=== PATIENT | male | born 1960 ===

== ENCOUNTER 2019-04-13 12:25 | Day surgery (SDC) | payer OTHER ==
[~2019-04-13 12:25] MED LIST: AMARYL PO; AMBIEN10 MG PO; ATORVASTATIN CA20 MG PO; CIPRO500 MG PO; GLUCOPHAGE XR500 MG; LANTUS; OMEPRAZOLE20 MG PO; RANITIDINE HCL300 MG PO; VASOTEC10 MG; VASOTEC10 MG PO
== END 2019-04-13 21:25 | disposition home or self-care (01) ==
LOC: CIR.AMB 12:25
DX: C67.6 Malignant neoplasm of ureteric orifice (principal)

== ENCOUNTER 2019-05-04 03:21 | Emergency (ER) | payer OTHER ==
[~2019-05-04] VITALS: Ht 175.3 cm; Wt 90.7 kg
[2019-05-04] MEDS ORDERED: CIPRO500 MG PO (08:12)
[2019-05-04] MEDS ORDERED: KETO10TA2 PO (08:12)
== END 2019-05-04 09:24 | disposition home or self-care (01) ==
LOC: ER 03:21
DX: N39.0 Urinary tract infection, site not specified (principal); R10.31 Right lower quadrant pain

== ENCOUNTER 2020-07-04 06:19 | Emergency (ER) | payer OTHER ==
[~2020-07-04] VITALS: Ht 175.3 cm; Wt 97.5 kg
[~2020-07-04 06:19] MED LIST changes: +KETO10TA2 PO
[2020-07-04] MEDS ORDERED: KETO10TA2 PO (08:54)
== END 2020-07-04 14:42 | disposition home or self-care (01) ==
LOC: ER 06:19
DX: S40.011A Contusion of right shoulder, initial encounter (principal); S30.0XXA Contusion of lower back and pelvis, initial encounter; S50.01XA Contusion of right elbow, initial encounter; W18.39XA Other fall on same level, initial encounter; Y93.89 Activity, other specified; Y92.098 Other place in other non-institutional residence as the place of occurrence of the external cause; Y99.8 Other external cause status

== ENCOUNTER → 2021-04-09 | Emergency (ER) | payer OTHER ==
[~2021-04-09] VITALS: Ht 172.7 cm; Wt 86.2 kg
[~2021-04-09] MED LIST changes: +GLIMEPIRIDE4 MG
== END | disposition home or self-care (01) ==
LOC: ER 20:10
DX: R51.9 Headache, unspecified (principal)